=== PATIENT | female | born 1970 | race Caucasian/White ===

== ENCOUNTER 2021-03-03 11:12 | Emergency (ER) | payer BC, SELFPAY ==
--- NOTE | ~2021-03-03 | CT_ITS ---
EXAMINATION: CT HEAD WITHOUT CONTRAST CLINICAL INFORMATION: Headaches COMPARISON: None TECHNIQUE: Contiguous axial imaging was performed from the skull base to vertex without intravenous administration of contrast. Additional 2-D coronal and sagittal reformatted images are generated on the CT workstation and uploaded to PACS. This CT examination was performed using dose optimization techniques as appropriate, variously including the following: *Automated exposure control *Adjustment of mA and/or kV according to patient size (this includes techniques or standardized protocols for targeted exams where dose is matched to indication/reason for exam; i.e. extremities or head) *Use of iterative reconstruction technique DLP: 648 mGy-cm FINDINGS: There is no intracranial hemorrhage, hematoma, or extra-axial fluid collection. The ventricles are normal in size. There is no hydrocephalus, edema, or mass effect. The howard-white matter differentiation appears symmetric. There is no visible acute territorial infarct or mass lesion. The calvarium appears intact. There is no pneumocephalus or orbital emphysema. The visualized sinuses and middle ears and mastoid air cells show no significant mucosal thickening. There are no air-fluid levels. CT/CT head/brain wo con IMPRESSION: No acute intracranial abnormality.
[2021-03-03 11:17] VITALS: BP 118/63; PULSE 82; RESP 16; TEMP 36.7; O2SAT 99; BMI 30.9
[2021-03-03] MEDS: 0.9 % Sodium Chloride 1,000 ML 999 ML IVCONT (12:42)
[2021-03-03] MEDS: Prochlorperazine Edisylate 10 MG/2 ML VIAL IVPUSH (12:49)
[2021-03-03] MEDS: Ketorolac Tromethamine 30 MG/ML VIAL IVPUSH (12:49)
[2021-03-03] MEDS: diphenhydrAMINE HCL 50 MG/ML VIAL 25 MG IVPUSH (12:49)
[2021-03-03 13:22] VITALS: RESP 18
[2021-03-03 13:32] VITALS: BP 99/54; PULSE 57; RESP 16; TEMP 36.7; O2SAT 97
--- NOTE | 2021-03-03 13:45 | PC.NURSE ---
PT SLEEPING, VSS, NAD.
--- NOTE | 2021-03-03 15:43 | ED_ITS ---
HPI - Headache General Chief Complaint: Headache Stated Complaint: headache Time Seen by Provider: 03/03/21 11:53 History of Present Illness HPI Narrative: Patient complains of left-sided headache associated with some pain and photophobia in the left eye, headache is gradual in onset, it is not similar to prior headaches, there is no vision loss or vision change, no fever no fainting, she did have some vomiting this morning and feels nauseous now, no dizziness no fever no chills no rash Related Data Previous Rx's Medication Instructions Recorded ibuprofen 600 mg PO Q6H PRN #20 tab 03/03/21 lorazepam [Ativan] 1 mg PO TID PRN #10 tab 03/03/21 ondansetron HCl [Zofran] 4 mg PO Q6H PRN #7 tab 03/03/21 Allergies Allergy/AdvReac Type Severity Reaction Status Date / Time No Known Allergies Allergy Verified 03/03/21 11:33 Review of Systems Review of Systems: Positive for left-sided headache, left eye pain, photophobia, and nausea Negatives are no fever no chills no dizziness no weakness no fainting no feeling faint no neck pain no stiff neck no numbness weakness or tingling no vision los s no vision change, no chest pain no abdominal pain, no diarrhea, no numbness weakness or tingling Yes all other systems are reviewed and are negative PMFSH Past Medical History Source: nursing notes reviewed Social History Social History Advance Directives: No Advance Directives Information Provided: Yes Physical Exam Vital Signs: Vital Signs: Last Vital Signs Temp 98.1 F 03/03/21 13:32 Pulse 57 03/03/21 13:32 Resp 16 03/03/21 13:32 BP 99/54 L 03/03/21 13:32 Pulse Ox 97 03/03/21 13:32 Body Mass Index 30.9 General appearance is no acute distress, calm and cooperative, a and O x3 Head is normocephalic atraumatic The ears are clear with normal tympanic membranes and normal canals The eye exam, pupils equal round reactive to light, extraocular motions are intact, there was some mild photophobia when the light was signed in the eye on the left side The pharynx is clear and moist Neck is supple Chest is clear to auscultation bilaterally Heart no murmur Abdomen soft nontender The extremities full range of motion x4 Neuro cranial nerves 2-12 intact as tested, gait and balance are normal, verbal interaction, speech comprehension and expression are all normal, there is no facial asymmetry, motor is 5 over 5 times for, cerebellar exam is normal Course Course Course Narrative: CT of the head was normal, no evidence of bleed or mass Patient was treated for migraine with good results, pain and nausea were relieved and patient was discharged comfortable and very improved Discharge Plan Discharge Clinical Impression: Headache Patient Disposition: Home, Self-Care Additional Instructions: We treated you for probable migraine headache with good relief For home if needed use ibuprofen and Tylenol for pain You can use Zofran if needed for nausea I wrote for some Ativan to use as needed for stress Discuss with primary care doctor if anti anxiety medication on a daily basis might be beneficial to U Return to the ER any time for any worse condition or concerns Prescriptions: New lorazepam [Ativan] 1 mg tablet 1 mg PO TID PRN (Reason: anxiety) Qty: 10 RF: 0 ibuprofen 600 mg tablet 600 mg PO Q6H PRN (Reason: pain) Qty: 20 RF: 0 ondansetron HCl [Zofran] 4 mg tablet 4 mg PO Q6H PRN (Reason: nausea and vomiting) Qty: 7 RF: 0 Interventions: ED Discharge Assessment Last Done: 03/03/21 15:54 Discharge Date/Time: 03/03/21 15:55
== END 2021-03-03 15:55 | disposition home or self-care (01) ==
PROVIDERS: Emergency Provider Emergency Medicine; PCP Family Medicine
DX: R51.9 Headache, unspecified (principal); F17.200 Nicotine dependence, unspecified, uncomplicated; F12.90 Cannabis use, unspecified, uncomplicated
CPT/HCPCS: 70450; 96361; 96374; 96375; 99284; J1200; J1885

== ENCOUNTER 2021-03-08 17:30 | Emergency (ER) | payer BC, SELFPAY ==
[2021-03-08 17:39] VITALS: BP 110/79; PULSE 80
[2021-03-08 17:40] VITALS: BP 120/79; PULSE 78; RESP 16; TEMP 36.6; O2SAT 98; BMI 35.3
[2021-03-08 18:46] LABS: Basophils Percent Auto 0.4 % (0-2); Eosinophils Absolute Auto 0.2 X10*3/uL (0.0-0.4); Eosinophils Percent Auto 1.8 % (0-4); Hematocrit 40.6 % (37-47); Hemoglobin 13.2 g/dl (12.0-16.0); Imm Gran Abs Auto 0.03 X10*3/uL (0.00-0.03); Imm Gran Pct Auto 0.3 % (0.0-0.4); Lymphocytes Absolute Auto 3.8 X10*3/uL (1.2-4.9); Lymphocytes Percent Auto 40.8 % (20-40); MANUAL DIFF FLAG SCAN; Mean Corpuscular HGB Conc 32.5 g/dl (31.0-35.0); Mean Corpuscular Hemoglobin 29.4 pg (27.0-33.0); Mean Corpuscular Volume 90.4 fL (80-98); Mean Platelet Volume 9.9 fL (9.4-12.3); Monocytes Absolute Auto 0.8 X10*3/uL (0.1-1.2); Monocytes Percent Auto 8.4 % (2-11); Neutrophils Absolute Auto 4.5 X10*3/uL (2.0-8.3); Neutrophils Percent Auto 48.3 % (45-73); Platelet Count 227 X10*3/uL (160-400); Red Blood Count 4.49 X10*6/uL (4.20-5.50); Red Cell Distribution Width 12.4 % (11.0-16.0); SCAN SMEAR FLAG 1; White Blood Count 9.2 X10*3/uL (4.8-10.8)
[2021-03-08 19:10] LABS: SLIDE REVIEW VERIFIED
[2021-03-08 19:19] LABS: Alanine Aminotransferase 14 U/L (0-31); Albumin Level 4.1 g/dL (3.5-5.0); Alkaline Phosphatase 86 U/L (39-117); Anion Gap 11 (12-20); Aspartate Amino Transferase 13 U/L (5-31); Bilirubin Total 0.3 mg/dL (0.0-1.0); Blood Urea Nitrogen 18 mg/dL (9-16); Calcium 8.9 mg/dL (8.4-10.2); Carbon Dioxide 27 mmol/L (22-29); Chloride 105 mmol/L (96-108); Creatinine Clr Calc Pharmacy 72.1; Estimated Glomerular Filt Rate > 60; Glucose Random 95 mg/dL (60-115); Potassium 4.2 mmol/L (3.3-5.1); Sodium 139 mmol/L (135-145)
--- NOTE | 2021-03-08 20:12 | ED_ITS ---
HPI - Headache General Chief Complaint: Headache Stated Complaint: migraine Time Seen by Provider: 03/08/21 17:34 Source: patient and EMS Mode of arrival: EMS Limitations: no limitations History of Present Illness HPI Narrative: 50-year-old female with past medical history of migraines presents with intractable migraine that started over 2 weeks ago. She was seen here on the with a negative CT scan, but states that the medications that were prescribed are not working. She states to have photophobia, nausea, headache, and left eye pain. MD elicited complaint: migraine Onset (ago): week(s) (1) Onset description: gradually Location: diffuse Severity: severe Pain scale (0-10): 10 Quality & Timing: aching, throbbing, constant, pressure, progressively worsening and similar to previous headaches Exacerbating factors: exertion, light and noise Relieving factors: nothing Context: occurred at rest Associated symptoms: photophobia and sensitivity to sound Treatments prior to arrival: acetaminophen, ibuprofen, prescription analgesic, antiemetic and migraine medication Related Data Previous Rx's Medication Instructions Recorded ibuprofen 600 mg PO Q6H PRN #20 tab 03/03/21 lorazepam [Ativan] 1 mg PO TID PRN #10 tab 03/03/21 ondansetron HCl [Zofran] 4 mg PO Q6H PRN #7 tab 03/03/21 xjlcwuvqyd-rhbkclhivyprg-iwjk 1 cap PO Q4-6H PRN #14 cap 03/08/21 [Fioricet] Allergies Allergy/AdvReac Type Severity Reaction Status Date / Time No Known Allergies Allergy Verified 03/03/21 11:33 Review of Systems Review of Systems: Constitutional: Positive migraine, No Weight loss, No Fever, No Chills, No Night Sweats, No Fatigue, No Malaise ENT/Mouth: No Hearing loss, No Ear Pain, No Nasal Congestion, No Sinus Pain, No Hoarseness, No sore throat, No Rhinorrhea, No Swallowing Difficulty Eyes: Positive left Eye Pain, No Swelling, No Redness, No Foreign Body, No Discharge, No Vision Changes Cardiovascular: No Chest Pain, No SOB, No Dyspnea on Exertion, No Orthopnea, No Edema, No Palpitations Respiratory: No Cough, No Sputum, No Wheezing, No Smoke Exposure, No Dyspnea Gastrointestinal: No Nausea, No Vomiting, No Diarrhea, No Constipation, No abdominal Pain, No Hematochezia, No Melena Genitourinary: no irregular bleeding, No Dysuria, No Urinary Frequency, No Hematuria, No Urinary Incontinence, No Urgency, No Flank Pain, No Urinary Flow Changes, No Hesitancy Musculoskeletal: No joint pain, No Myalgias, No Joint Swelling Skin: No Skin Lesions, No rash Neuro: No Weakness, No Numbness, No Paresthesias, No Loss of Consciousness, No Dizziness, No Headache Psych: No Anxiety/Panic, No Depression, No SI/HI/AH/VH, No Social Issues Heme/Lymph: No Bruising, No Bleeding,No Lymphadenopathy Endocrine: No Polyuria, No Polydipsia, No Temperature Intolerance Yes all other systems are reviewed and are negative [facility] Past Medical History Attestation statement: The following information was validated with the patient. Source: old records reviewed Medical History Migraines Surgical History H/O rotator cuff surgery H/O tubal ligation History of ankle surgery Social History Social History Alcohol intake: current Alcohol intake frequency: a few times a month Smoking Status: Current every day smoker Smoked in Last 30 Days: Yes Use of substances other than those prescribed or required for medical reasons: No Substance Use Type: Marijuana Advance Directives: No Advance Directives Information Provided: No Physical Exam Vital Signs: Vital Signs: Last Vital Signs Temp 98.1 F 03/08/21 21:51 Pulse 64 03/08/21 21:51 Resp 16 03/08/21 22:04 BP 106/56 L 03/08/21 21:51 Pulse Ox 98 03/08/21 21:51 Body Mass Index 35.3 Appearance: Alert. Oriented X3. Moderate distress. Head: Normal external exam. Normocephalic. Atraumatic. No Mallory signs noted. No raccoon eyes noted Eyes: PERRLA. EOMI. Conjunctiva erythematous to the left eye. Eyelids normal. ENT: TM's Normal. Pharynx normal. Uvula midline. Moist mucous membranes. No trismus noted. No drooling noted. No muffled voice noted. Neck: Normal inspection. Neck supple. No adenopathy. Thyroid Normal. No meningeal signs. No neck mass noted. CVS: Normal heart rate and rhythm. Heart sound normal. No murmurs noted. Pulses equal to all extremities. Respiratory: No respiratory distress. Painless inspiration. Breath sounds normal. No wheezes/rales/rhonchi noted. Chest nontender. No accessory muscle usage noted or decreased air movement noted. Abdomen: Soft and nontender. Bowel sounds normal in all 4 quadrants. No distention noted. No organomegaly noted. No visible injury noted. Back: No CVA tenderness. Full range of motion noted. Skin: Skin warm and dry. Normal skin color. Normal skin turgor. No rashes/lesions/lacerations noted. Extremities: No lower extremity edema. Extremities exhibit normal range of motion. Extremities nontender. Neuro: cranial nerves 2-12 intact, no focal neural deficits, strength 5/5 to all extremities, No motor deficit. No sensory deficit. Patellar Reflexes normal. NIH Stroke Scale Internal: Initial- Upon Arrival Level of Consciousness: Alert Level of Consciousness Questions: Answers both questions correctly Level of Consciousness Commands: Performs both tasks correctly Best Gaze: Normal Visual: No visual loss Facial Palsy: Normal Motor Arm (Right): No drift Motor Arm (Left): No drift Motor Leg (Right): No drift Motor Leg (Left): No drift Limb Ataxia: Absent Sensory: Normal Best Language: No aphasia Dysarthia: Normal Extinction and Inattention: No abnormality Score: 0 Course Course Course Narrative: 50-year-old female with past medical history migraines, presents with intractable migraine. Was evaluated on 03/03/2021 at this facility with negative CT scan. States that she was taking the medications that were prescribed to her however they did not work very well. She did receive Toradol via EMS. I did see her immediately upon presentation to the emergency department via EMS and she was then brought to the emergency department waiting room. NIH stroke scale 0, completed at the time of her initial presentation via EMS. Will give 1 L of fluid, Reglan, Benadryl, magnesium, and dexamethasone. Approximately 1 hour after receiving medications, patient states that she feels much better, her eye is still red she does have an appointment with Ophthalmology on Tuesday. She has had this eye pain for 2 weeks. Patient referred to Neurology, patient verbalized understanding of and agrees to plan of care discharge home. MDM - Headache Differential Diagnosis Differential diagnosis: Likely migraine, tension headache and headache Medical Records Attestation: I reviewed the patient's medical records. Lab Data Attestation: I reviewed the patient's lab results. Result diagrams: 03/08/21 18:39 03/08/21 18:39 Labs: Lab Results 03/08/21 03/08/21 Range/Units 18:39 18:39 WBC 9.2 (4.8-10.8) X10*3/uL RBC 4.49 (4.20-5.50) X10*6/uL Hgb 13.2 (12.0-16.0) g/dl Hct 40.6 (37-47) % MCV 90.4 (80-98) fL MCH 29.4 (27.0-33.0) pg MCHC 32.5 (31.0-35.0) g/dl RDW 12.4 (11.0-16.0) % Plt Count 227 (160-400) X10*3/uL MPV 9.9 (9.4-12.3) fL Immature Gran % (Auto) 0.3 (0.0-0.4) % Neut % (Auto) 48.3 (45-73) % Lymph % (Auto) 40.8 H (20-40) % [place] % (Auto) 8.4 (2-11) % Eos % (Auto) 1.8 (0-4) % Baso % (Auto) 0.4 (0-2) % Lymph # (Auto) 3.8 (1.2-4.9) X10*3/uL [place] # (Auto) 0.8 (0.1-1.2) X10*3/uL Eos # (Auto) 0.2 (0.0-0.4) X10*3/uL Baso # (Auto) 0.0 (0.0-0.2) X10*3/uL Abs Immat Gran (auto) 0.03 (0.00-0.03) X10*3/uL Absolute Neuts (auto) 4.5 (2.0-8.3) X10*3/uL Absolute Nucleated RBC 0.000 (0.0-0.012) X10*3/uL Nucleated RBC % (auto) 0.0 (0.0-0.2) /100WBC Smear Tech's Comments VERIFIED Sodium 139 (135-145) mmol/L Potassium 4.2 (3.3-5.1) mmol/L Chloride 105 (96-108) mmol/L Carbon Dioxide 27 (22-29) mmol/L Anion Gap 11 L (12-20) BUN 18 H (9-16) mg/dL Creatinine 0.84 (0.5-1.4) mg/dL Estim Creat Clear Calc 72.1 Estimated GFR > 60 Random Glucose 95 (60-115) mg/dL Calcium 8.9 (8.4-10.2) mg/dL Total Bilirubin 0.3 (0.0-1.0) mg/dL AST 13 (5-31) U/L ALT 14 (0-31) U/L Alkaline Phosphatase 86 (39-117) U/L Total Protein 7.0 (6.5-8.0) g/dL Albumin 4.1 (3.5-5.0) g/dL Discharge Plan Discharge Clinical Impression: Migraine Qualifiers: Migraine type: unspecified Status migrainosus presence: with status migrainosus Intractability: intractable Qualified Code(s): G43.911 - Migraine, unspecified, intractable, with status migrainosus Patient Disposition: Home, Self-Care Instructions: Migraine Headache (ED) Additional Instructions: You were evaluated for migraine headache. Please take Fioricet as directed. Please consider following up with Neurology for further evaluation. Please keep your ophthalmology appointment on Tuesday. Thank you for choosing this emergency department for evaluation. Please follow-up with primary care physician as needed. Return to the emergency department for any new, concerning, or worsening symptoms. Prescriptions: New wvobdedaid-jqkzhwrpljtpn-bfuw [Fioricet] 50-300-40 mg capsule 1 cap PO Q4-6H PRN (Reason: pain) Qty: 14 RF: 0 No Action lorazepam [Ativan] 1 mg tablet 1 mg PO TID PRN (Reason: anxiety) Qty: 10 RF: 0 ibuprofen 600 mg tablet 600 mg PO Q6H PRN (Reason: pain) Qty: 20 RF: 0 ondansetron HCl [Zofran] 4 mg tablet 4 mg PO Q6H PRN (Reason: nausea and vomiting) Qty: 7 RF: 0 Referrals: Jayy Spaulding MD [Physician] - 2 days (migraines)
[2021-03-08 20:15] VITALS: BP 143/80; PULSE 81; RESP 16; TEMP 36.9; O2SAT 98
[2021-03-08] MEDS: Butalb/Acetamin/Caff 50/325/40 TABLET 1 TAB PO (20:47)
[2021-03-08] MEDS: diphenhydrAMINE HCL 50 MG/ML VIAL 25 MG IVPUSH (20:49)
[2021-03-08] MEDS: dexAMETHasone sod phosphate 4 MG/ML VIAL 6 MG IVPUSH (20:52)
[2021-03-08] MEDS: Metoclopramide HCl 10 MG/2 ML VIAL IVPUSH (20:58)
[2021-03-08] MEDS: Magnesium Sulfate/H2O 2 GM/50 ML PIGGYBACK IV (21:07)
[2021-03-08] MEDS: 0.9 % Sodium Chloride 1,000 ML 999 ML IVCONT (21:07)
[2021-03-08 21:51] VITALS: BP 106/56; PULSE 64; RESP 16; TEMP 36.7; O2SAT 98
[2021-03-08 22:04] VITALS: RESP 16
== END 2021-03-09 00:09 | disposition home or self-care (01) ==
PROVIDERS: Emergency Provider Emergency Medicine
DX: G43.911 Migraine, unspecified, intractable, with status migrainosus (principal); F17.200 Nicotine dependence, unspecified, uncomplicated; F12.90 Cannabis use, unspecified, uncomplicated
CPT/HCPCS: 36415; 80053; 85025; 96361; 96374; 96375; 99284; J1100; J1200; J2765; J3475

== ENCOUNTER 2021-06-18 07:36 | Emergency (ER) | payer BC, SELFPAY ==
[2021-06-18 07:56] VITALS: BP 121/65; PULSE 95; RESP 16; TEMP 37.6; O2SAT 97; BMI 33.6
[2021-06-18 08:00] VITALS: BP 110/70; PULSE 90; RESP 20; O2SAT 95
[2021-06-18] MEDS: Ketorolac Tromethamine 15 MG/ML VIAL 30 MG IVPUSH (08:27)
[2021-06-18] MEDS: 0.9 % Sodium Chloride 1,000 ML 999 ML IVCONT (08:27)
[2021-06-18] MEDS: Lidocaine 4 % Patch ADH..PATCH 1 PATCH TRANSDERMA (08:28)
[2021-06-18 08:29] LABS: Hematocrit 38.8 % (37-47); Hemoglobin 12.8 g/dl (12.0-16.0); Mean Corpuscular Hemoglobin 29.9 pg (27.0-33.0); Mean Corpuscular Volume 90.7 fL (80-98); Platelet Count 253 X10*3/uL (160-400); Red Blood Count 4.28 X10*6/uL (4.20-5.50); Red Cell Distribution Width 13.2 % (11.0-16.0); White Blood Count 14.2 X10*3/uL (4.8-10.8)
[2021-06-18 08:30] LABS: Glucose Urine UA NEG (NEG); Leukocyte Esterase Urine NEG (NEG); Nitrite Urine NEG (NEG); Specific Gravity - Urine >= 1.030 (1.005-1.025); Urine Blood NEG (NEG); Urine Ketones NEG (NEG); Urine Protein NEG (NEG-TRACE)
[2021-06-18 08:31] LABS: Appearance Urine HAZY; Color Urine YELLOW
--- NOTE | 2021-06-18 08:38 | ED_ITS ---
HPI - Female Genitourinary General Chief complaint: Urogenital-Female Stated complaint: flank pain Time Seen by Provider: 06/18/21 08:03 Source: patient Mode of arrival: ambulatory Limitations: no limitations History of Present Illness HPI Narrative: 50 y/o female with history of migraine headaches who presented to the ER with left sided flank and back pain that started 4 days ago. She denies injury or trauma but admits the pain started after she slept in her recliner. She states the pain is worse with movement, palpation and coughing/sneezing. She initially thought it was muscular pain but it has not gone away, in fact it has gotten worse. She took Tylenol last night with no improvement. She denies urinary symptoms, fever, chills, N/V/D, or abdominal pain. MD elicited complaint: flank pain Onset (ago): day(s) (4) Severity: moderate Female Urogenital Radiation: Non-Radiating Severity scale (1-10): 6 Quality of pain: sharp and aching Consistency: constant Vaginal discharge: none Vaginal bleeding: none Urinary symptoms: Flank Pain Exacerbating factors: movement and palpation Relieving factors: other (rest, staying still) Associated symptoms: denies other symptoms Treatment prior to arrival: none Sexual activity: No Patient : No Related Data Previous Rx's Medication Instructions Recorded ibuprofen 600 mg tablet 600 mg PO Q6H PRN #20 tab 03/03/21 lorazepam 1 mg tablet (Ativan) 1 mg PO TID PRN #10 tab 03/03/21 ondansetron HCl 4 mg tablet 4 mg PO Q6H PRN #7 tab 03/03/21 (Zofran) gonrglcjnc-wffjdwuzaeirx-yvnppetp 1 cap PO Q4-6H PRN #14 cap 03/08/21 50 mg-300 mg-40 mg capsule (Fioricet) lidocaine 4 % topical patch 1 patch TOPICAL BID PRN #10 ea 06/18/21 (Salonpas (lidocaine)) naproxen sodium 220 mg capsule 220 mg PO Q8H PRN #14 cap 06/18/21 tizanidine 2 mg capsule (Zanaflex) 2 mg PO BID PRN #6 cap 06/18/21 Allergies Allergy/AdvReac Type Severity Reaction Status Date / Time No Known Allergies Allergy Verified 03/03/21 11:33 Review of Systems Constitutional: Constitutional: Denies chills, Denies fever(s) and Denies headache(s) Eyes: Eyes: Reports no additional eye complaints ENT: Denies headache(s) and Denies sore throat Cardiovascular: Cardiovascular: Denies chest pain and Denies dyspnea Respiratory: Respiratory: Denies cough and Denies dyspnea Gastrointestinal: Gastrointestinal: Denies abdominal pain, Denies belching, Denies melena, Denies hematochezia, Denies change in bowel habits, Denies coffee ground emesis, Denies constipation, Denies diarrhea, Denies nausea and Denies vomiting Genitourinary: Genitourinary: Denies abnormal vaginal bleeding, Denies hematur ia, Denies urinary incontinence, Denies urinary hesitancy, Denies urinary urgency and Denies vaginal discharge Musculoskeletal: Musculoskeletal: Reports back pain and Denies myalgias Integumentary/Breasts: Skin/Breast: Denies rash Neurologic: Denies headache(s) Psychiatric: Psychiatric: Reports anxiety Hematologic/Lymphatic: Hematologic/Lymphatic: Denies easy bleeding and Denies easy bruising PMFSH Past Medical History Medical History Migraines Surgical History H/O rotator cuff surgery H/O tubal ligation History of ankle surgery Social History Social History Alcohol intake: current Alcohol intake frequency: holidays/special occasions only Patient Tobacco Use Status: Current someday Tobacco user Use of substances other than those prescribed or required for medical reasons: No Substance Use Type: Marijuana Advance Directives: No Advance Directives Information Provided: Yes Patient : No Physical Exam Vital Signs: Vital Signs: Last Vital Signs Temp 99.7 F 06/18/21 07:56 Pulse 76 06/18/21 09:18 Resp 18 06/18/21 09:18 BP 102/58 L 06/18/21 09:18 Pulse Ox 95 06/18/21 09:18 Body Mass Index 33.6 Appearance: Alert. Oriented X3. No acute distress. Eyes: Pupils equal, round and reactive to light. ENT: Pharynx normal. Neck: Normal inspection. Neck supple. CVS: Normal heart rate and rhythm. Pulses normal. Respiratory: No respiratory distress. Breath sounds normal. Abdomen: Soft and nontender. +BS x4. Left flank/ mid thoracic back area with soft tissue tenderness, +CVA tenderness on the left. Skin: Skin warm and dry. Normal skin color. Normal skin turgor. No rashes. Extremities: No lower extremity edema. Neuro: Oriented X 3. No motor deficit. No sensory deficit. Course Course Course Narrative: 50 y/o female presenting with left sided back/flank pain for the last 4 days after she slept in her recliner. She has no urinary symptoms. Her VS are stable and she appears well. Pain with movement only. Suspect MSK source of pain. Will check basic labs and UA. Toradol ordered. Will reassess. Reevaluation(s) Reevaluation #1: UA negative. WBC 14K, unclear etiology. No signs of symptoms of infection at this time. She feels significantly improved with NSAID and lidoderm. Her pain is most likely muscular in nature. Will treat for muscular pain/spasm and have her follow up with her PCP. She is stable for d/c home. Patient agrees with plan. MDM - Female Genitourinary Lab Data Result diagrams: 06/18/21 08:20 08 08:20 Labs: Lab Results 06/18/21 06/18/21 06/18/21 Range/Units 08:20 08:20 08:20 WBC 14.2 H (4.8-10.8) X10*3/uL RBC 4.28 (4.20-5.50) X10*6/uL Hgb 12.8 (12.0-16.0) g/dl Hct 38.8 (37-47) % MCV 90.7 (80-98) fL MCH 29.9 (27.0-33.0) pg MCHC 33.0 (31.0-35.0) g/dl RDW 13.2 (11.0-16.0) % Plt Count 253 (160-400) X10*3/uL MPV 10.0 (9.4-12.3) fL Immature Gran % (Auto) Cancelled Neut % (Auto) Cancelled Lymph % (Auto) Cancelled [place] % (Auto) Cancelled Eos % (Auto) Cancelled Baso % (Auto) Cancelled Lymph # (Auto) Cancelled [place] # (Auto) Cancelled Eos # (Auto) Cancelled Baso # (Auto) Cancelled Abs Immat Gran (auto) Cancelled Absolute Neuts (auto) Cancelled Absolute Nucleated RBC 0.000 (0.0-0.012) X10*3/uL Nucleated RBC % (auto) 0.0 (0.0-0.2) /100WBC Neutrophils % (Manual) 47 (45-73) % Band Neutrophils % 3 (3-5) % Lymphocytes % (Manual) 35 (20-40) % Atypical Lymphs % (Man) 4 (0-6) % Monocytes % (Manual) 8 (2-11) % Eosinophils % (Manual) 2 (0-4) % Basophils % (Manual) 1 (0-1) % Abs Neuts (Manual) 7.1 (2.2-7.9) X10*3/uL Lymphocytes # (Manual) 5.0 H (0.6-4.8) X10*3/uL Atyp Lymphs # (Manual) 0.6 x10*3/uL Monocytes # (Manual) 1.1 (0.0-1.2) X10*3/uL Eosinophils # (Manual) 0.3 (0.0-0.8) X10*3/UL Basophils # (Manual) 0.1 (0.0-0.3) X10*3/uL [place] Cells PRESENT Platelet Estimate NORMAL (NORMAL) Plt Morphology Comment NORMAL RBC Morphology NORMAL Sodium 142 (135-145) mmol/L Potassium 4.3 (3.3-5.1) mmol/L Chloride 108 (96-108) mmol/L Carbon Dioxide 25 (22-29) mmol/L Anion Gap 13 (12-20) BUN 13 (9-16) mg/dL Creatinine 0.70 (0.5-1.4) mg/dL Estim Creat Clear Calc 98.9 Estimated GFR > 60 Random Glucose 95 (60-115) mg/dL Calcium 9.2 (8.4-10.2) mg/dL Magnesium 2.2 (1.6-2.6) mg/dL Total Bilirubin < 0.2 (0.0-1.0) mg/dL Direct Bilirubin < 0.2 (0.0-0.5) mg/dL AST 10 (5-31) U/L ALT 15 (0-31) U/L Alkaline Phosphatase 81 (39-117) U/L Total Protein 7.2 (6.5-8.0) g/dL Albumin 4.1 (3.5-5.0) g/dL Urine Color YELLOW Urine Appearance HAZY Urine pH 6.0 (5.0-8.0) Ur Specific [place] >= 1.030 H (1.005-1.025) Urine Protein NEG (NEG-TRACE) MG/DL Urine Glucose (UA) NEG (NEG) MG/DL Urine Ketones NEG (NEG) MG/DL Urine Blood NEG (NEG) Urine Nitrite NEG (NEG) Ur Leukocyte Esterase NEG (NEG) Discharge Plan Discharge Clinical Impression: Acute left-sided thoracic back pain Patient Disposition: Home, Self-Care Instructions: Back Pain (ED) Additional Instructions: Your pain is most likely muscular. No bending, lifting or twisting. Use ice several times per day for 20 minutes at a time for the next 48 hours and then change to heat. Take medications as prescribed to help with pain and discomfort. Follow up with your Primary Care Doctor this week. If your pain worsens, if you develop new numbness, tingling, weakness, loss of function or incontinence call 911 or come back to the ER right away for evaluation. Prescriptions: New lidocaine [Salonpas (lidocaine)] 4 % adhesive patch,medicated 1 patch topical BID PRN (Reason: pain) Qty: 10 RF: 0 tizanidine [Zanaflex] 2 mg capsule 2 mg PO BID PRN (Reason: muscle spasticity) Qty: 6 RF: 0 naproxen sodium 220 mg capsule 220 mg PO Q8H PRN (Reason: pain) Qty: 14 RF: 0 No Action lorazepam [Ativan] 1 mg tablet 1 mg PO TID PRN (Reason: anxiety) Qty: 10 RF: 0 ibuprofen 600 mg tablet 600 mg PO Q6H PRN (Reason: pain) Qty: 20 RF: 0 ondansetron HCl [Zofran] 4 mg tablet 4 mg PO Q6H PRN (Reason: nausea and vomiting) Qty: 7 RF: 0 xlpujjwcvu-lsmfjcwhovqka-xvvj [Fioricet] 50-300-40 mg capsule 1 cap PO Q4-6H PRN (Reason: pain) Qty: 14 RF: 0
[2021-06-18 08:56] LABS: Alanine Aminotransferase 15 U/L (0-31); Albumin Level 4.1 g/dL (3.5-5.0); Alkaline Phosphatase 81 U/L (39-117); Anion Gap 13 (12-20); Aspartate Amino Transferase 10 U/L (5-31); Bilirubin Direct < 0.2 mg/dL (0.0-0.5); Bilirubin Total < 0.2 mg/dL (0.0-1.0); Blood Urea Nitrogen 13 mg/dL (9-16); Calcium 9.2 mg/dL (8.4-10.2); Carbon Dioxide 25 mmol/L (22-29); Chloride 108 mmol/L (96-108); Creatinine Clr Calc Pharmacy 98.9; Estimated Glomerular Filt Rate > 60; Glucose Random 95 mg/dL (60-115); Magnesium 2.2 mg/dL (1.6-2.6); Potassium 4.3 mmol/L (3.3-5.1); Sodium 142 mmol/L (135-145); Total Protein 7.2 g/dL (6.5-8.0)
[2021-06-18 08:58] LABS: Atypical Lymph Absolute Manual 0.6 x10*3/uL; Atypical Lymphs Percent Manual 4 % (0-6); Band Neutrophils Percent 3 % (3-5); Basophils Abs Manual 0.1 X10*3/uL (0.0-0.3); Basophils Percent Manual 1 % (0-1); Eosinophils Absolute Manual 0.3 X10*3/UL (0.0-0.8); Eosinophils Percent Manual 2 % (0-4); Lymphocytes Percent Manual 35 % (20-40); Monocytes Absolute Manual 1.1 X10*3/uL (0.0-1.2); Monocytes Percent Manual 8 % (2-11); Neutrophils Absolute Manual 7.1 X10*3/uL (2.2-7.9); Neutrophils Percent Manual 47 % (45-73)
[2021-06-18 09:00] LABS: Platelet Estimate NORMAL (NORMAL); Platelet Morphology Comment NORMAL; RBC Morphology NORMAL; Smudge Cells PRESENT
[2021-06-18 09:18] VITALS: BP 102/58; PULSE 76; RESP 18; O2SAT 95
== END 2021-06-18 10:48 | disposition home or self-care (01) ==
PROVIDERS: Physician Assistant; Emergency Provider Emergency Medicine
DX: M54.6 Pain in thoracic spine (principal); F17.210 Nicotine dependence, cigarettes, uncomplicated; F12.90 Cannabis use, unspecified, uncomplicated
CPT/HCPCS: 36415; 80048; 80076; 81003; 83735; 85007; 85027; 96361; 96374; 99284; J1885

== ENCOUNTER 2025-02-19 14:11 | Emergency (ER) | payer BC, SELFPAY ==
[2025-02-19 14:44] VITALS: BP 146/93; PULSE 115; RESP 16; TEMP 36.6; O2SAT 97; BMI 41.6
--- NOTE | 2025-02-19 14:54 | ED.GENADULT ---
HPI - General Adult General Chief complaint: General Medical Stated complaint: High blood sugar Time Seen by Provider: 02/19/25 15:16 Source: patient Mode of arrival: ambulatory Limitations: no limitations History of Present Illness ED Provider: DAVID HPI narrative: 54 yo female no known PMH but she hasn't been caring for herself. 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 She has not been to the doctors in 5 years. She c/o fatigue, thirst, polyuria x 3 weeks. Her mom has DM so she became concerned. No fevers, CP/SOB, n/v/d. She knows how to dose insulin and check blood sugars as she has to do it for her mom. complaint: concern for DM Onset (ago): week(s) (3) Severity: moderate Relieving factors: none Exacerbating factors: eating Associated symptoms: other (polydipsia, polyuria) Treatments prior to arrival: none Related Data Previous Rx's ?Medication ?Instructions ?Recorded ibuprofen 600 mg tablet 600 mg PO Q6H PRN pain #20 tabs 03/03/21 lorazepam 1 mg tablet (Ativan) 1 mg PO TID PRN anxiety #10 tabs 03/03/21 ondansetron HCl 4 mg tablet 4 mg PO Q6H PRN nausea and 03/03/21 (Zofran) vomiting #7 tabs lzqflylpbd-qcdpcqdidwxti-dingtbzd 1 cap PO Q4-6H PRN pain #14 caps 03/08/21 50 mg-300 mg-40 mg capsule (Fioricet) lidocaine 4 % topical patch 1 patch topical BID PRN pain #10 ea 06/18/21 (Salonpas (lidocaine)) naproxen sodium 220 mg capsule 220 mg PO Q8H PRN pain #14 caps 06/18/21 tizanidine 2 mg capsule (Zanaflex) 2 mg PO BID PRN muscle spasticity 06/18/21 #6 caps blood sugar diagnostic (FreeStyle #100 ea 02/19/25 Test strips) blood-glucose meter (FreeStyle #1 ea 02/19/25 Wharton kit) blood-glucose meter (Freestyle #1 ea 02/19/25 [employer] meter) insulin glargine 100 unit/mL 10 unit (0.1 mL) subcut QPM #10 mL 02/19/25 subcutaneous solution (Lantus U-100 Insulin) lancets 28 gauge (FreeStyle #100 ea 02/19/25 Lancets) metformin 500 mg tablet 500 mg PO BID #60 tabs 02/19/25 Allergies Allergy/AdvReac Type Severity Reaction Status Date / Time No Known Allergies Allergy Verified 02/19/25 14:44 Review of Systems Review of Systems: Constitutional : No Fever, No Chills, No Fatigue ENT/Mouth : No sore throat, No Rhinorrhea Eyes: No Eye Pain, No Swelling, No Redness Cardiovascular : No Chest Pain, No SOB, No Dyspnea on Exertion Respiratory : No Cough, No Sputum Gastrointestinal : No Nausea, No Vomiting, No Diarrhea, No abdominal Pain Genitourinary : No Dysuria, No Urinary Frequency, No Hematuria, Musculoskeletal : No joint pain, No Myalgias, No Joint Swelling Skin : No Skin Lesions, No rash Neuro : No Weakness, No Numbness, No Dizziness, no Headache Psych : No Anxiety/Panic, No Depression Heme/Lymph: No Bruising, No Bleeding,No Lymphadenopathy Endocrine : pos Polyuria, pos Polydipsia All other systems reviewed and are negative [facility] Past Medical History Attestation statement: The following information was validated with the patient. Source: old records reviewed Medical History Migraines Surgical History H/O tubal ligation H/O rotator cuff surgery History of ankle surgery Social History Social History Alcohol intake: current Alcohol intake frequency: holidays/special occasions only Patient Tobacco Use Status: Current someday Tobacco user Smoked in Last 30 Days: No Use of substances other than those prescribed or required for medical reasons: No Substance Use Type: Marijuana Advance Directives: No Advance Directives Information Provided: Yes Physical Exam ED Vital Signs: Vital Signs - 24 hr 02/19/25 14:44 02/19/25 17:13 02/19/25 17:14 Temperature 98 F 97.8 F 97.8 F Pulse Rate 115 H 105 H 105 H Respiratory Rate 16 18 18 Blood Pressure 146/93 H 126/86 126/86 Pulse Oximetry 97 97 97 Oxygen Delivery Method Room Air Room Air Room Air BMI result Body Mass Index 41.6 Appearance: Alert. Oriented X3. No acute distress. Eyes: Pupils equal, round and reactive to light. ENT: Pharynx mildy dry MM Neck: Normal inspection. Neck supple. CVS: Normal heart rate and rhythm. Pulses normal. Respiratory: No respiratory distress. Breath sounds normal. Abdomen: Soft and nontender. Skin: Skin warm and dry. Normal skin color. Normal skin turgor. Extremities: No lower extremity edema. No calf ttp Neuro: Oriented X 3. No motor deficit. No sensory deficit. CN2-12 intact Course Course Course Narrative: RME: 54-year-old female presents to ED for polydipsia polyuria with dizziness for the past 2 weeks. Patient states she checked her glucose to her mother's glucometer and her glucose was high. Presently glucometer over 476. Charge nurse made aware labs fluids ordered. Medications Administered Discontinued Medications Generic Name Dose Route Start Last Admin Trade Name Freq PRN Reason Stop Dose Admin Sodium Chloride 1,000 mls @ 999 mls/hr 02/19/25 14:51 02/19/25 17:43 Ns IV 02/19/25 15:51 Infused .Q1H1M STA Infusion Sodium Chloride 1,000 mls @ 999 mls/hr 02/19/25 14:53 02/19/25 17:43 Ns IV 02/19/25 15:53 Infused .Q1H1M STA Infusion Insulin Glargine 10 unit 02/19/25 17:15 02/19/25 17:54 Insulin Glargine,Hum.Rec.Anlog 100 Unit/Ml 10 Ml Vial SUBCUT 02/19/25 17:16 10 unit ONCE ONE Administration Insulin Human Regular 5 unit 02/19/25 15:44 02/19/25 16:18 Insulin Regular, Human 100 Unit/Ml 10 Ml Vial IVPUSH 02/19/25 15:45 5 unit ONCE ONE Administration Medical Decision Making Medical Decision Making MDM Narrative: 54 yo female who has not gone to the doctor in 5 years come in with c/o polyuria, polydipsia and concern for new onset DM - she has no infectious symptoms no CP/SOB. At this time will obtain labs, hydrate, start on IV insulin - start medications as well but likely lantus depending on her HgA1c. She is well educated as she cares for her mother and is able to do this. Will refer to PCP Differential Diagnosis Differential Diagnoses: The differential diagnosis associated with the presentation includes new onset DM, DKA Admission/Observation Consideration of admission/observation: Escalation of care including admission/observation considered BS improved reliable to care for her DM repeat BMP stable - can be DC home Lab Data [facility] Lab Attestation statement: I reviewed the patient's lab results. no gap mild drop in HCO3 doubt DKA 02/19/25 15:37 02/19/25 17:30 Labs: Lab Results 02/19/25 02/19/25 02/19/25 Range/Units 14:51 15:31 15:37 WBC 11.5 H (4.8-10.8) X10*3/uL RBC 4.79 (4.20-5.50) X10*6/uL Hgb 14.1 (12.0-16.0) g/dl Hct 40.8 (37.0-47.0) % MCV 85.2 (80.0-98.0) fL MCH 29.4 (27.0-33.0) pg MCHC 34.6 (31.0-35.0) g/dl RDW 12.3 (11.0-16.0) % Plt Count 242 (160-400) X10*3/uL MPV 11.6 (9.4-12.3) fL Immature Gran % (Auto) 0.3 (0.0-0.4) % Neut % (Auto) 51.9 (45-73) % Lymph % (Auto) 40.7 H (20-40) % [place] % (Auto) 5.6 (2-11) % Eos % (Auto) 0.9 (0-4) % Baso % (Auto) 0.6 (0-2) % Lymph # (Auto) 4.7 (1.2-4.9) X10*3/uL [place] # (Auto) 0.6 (0.1-1.2) X10*3/uL Eos # (Auto) 0.1 (0.0-0.4) X10*3/uL Baso # (Auto) 0.1 (0.0-0.2) X10*3/uL Abs Immat Gran (auto) 0.03 (0.00-0.03) X10*3/uL Absolute Neuts (auto) 6.0 (2.0-8.3) x10*3/uL Absolute Nucleated RBC 0.000 (0.0-0.012) X10*3/uL Nucleated RBC % (auto) 0.0 (0.0-0.2) /100WBC Smear Tech's Comments VERIFIED Sodium 132 L (135-145) mmol/L Potassium 4.4 (3.3-5.1) mmol/L Chloride 99 (96-108) mmol/L Carbon Dioxide 21 L (22-29) mmol/L Anion Gap 16 (12-20) BUN 14 (9-16) mg/dL Creatinine 0.93 (0.5-1.4) mg/dL Estim Creat Clear Calc 68.3 Estimated GFR > 60 POC Glucose 479 H* (60-115) mg/dL Random Glucose 465 H* (60-115) mg/dL Estimat Average Glucose 324 mg/dL Hemoglobin A1c % 12.9 H (<6.0) % Calcium 9.3 (8.4-10.2) mg/dL Total Bilirubin 0.3 (0.0-1.0) mg/dL AST 36 H (5-31) U/L ALT 28 (0-31) U/L Alkaline Phosphatase 152 H (39-117) U/L Total Protein 8.3 H (6.5-8.0) g/dL Albumin 4.0 (3.5-5.0) g/dL Beta-Hydroxybutyrate 1.21 H (0.02-0.27) mmol/L Urine Color Yellow Urine Appearance Clear Urine pH 5.5 (5.0-9.0) Ur Specific [place] >= 1.030 H (1.005-1.025) Urine Protein Negative (Neg-Trace) mg/dL Urine Glucose (UA) >=1000 H (Negative) mg/dL Urine Ketones 15 (Negative) mg/dL Urine Blood Moderate (2+) H (Negative) Urine Nitrite Negative (Negative) Ur Leukocyte Esterase Negative (Negative) Urine RBC >20 H (0-2) /HPF Urine WBC 0-5 (0-5) /HPF Ur Squamous Epith Cells 0-2 (0-2) /HPF Urine Bacteria None Seen (None Seen) Hyaline Casts 3-5 (0-2) /LPF 02/19/25 02/19/25 02/19/25 Range/Units 16:18 17:03 17:30 WBC (4.8-10.8) X10*3/uL RBC (4.20-5.50) X10*6/uL Hgb (12.0-16.0) g/dl Hct (37.0-47.0) % MCV (80.0-98.0) fL MCH (27.0-33.0) pg MCHC (31.0-35.0) g/dl RDW (11.0-16.0) % Plt Count (160-400) X10*3/uL MPV (9.4-12.3) fL Immature Gran % (Auto) (0.0-0.4) % Neut % (Auto) (45-73) % Lymph % (Auto) (20-40) % [place] % (Auto) (2-11) % Eos % (Auto) (0-4) % Baso % (Auto) (0-2) % Lymph # (Auto) (1.2-4.9) X10*3/uL [place] # (Auto) (0.1-1.2) X10*3/uL Eos # (Auto) (0.0-0.4) X10*3/uL Baso # (Auto) (0.0-0.2) X10*3/uL Abs Immat Gran (auto) (0.00-0.03) X10*3/uL Absolute Neuts (auto) (2.0-8.3) x10*3/uL Absolute Nucleated RBC (0.0-0.012) X10*3/uL Nucleated RBC % (auto) (0.0-0.2) /100WBC Smear Tech's Comments Sodium 139 (135-145) mmol/L Potassium 3.7 (3.3-5.1) mmol/L Chloride 109 H (96-108) mmol/L Carbon Dioxide 22 (22-29) mmol/L Anion Gap 12 (12-20) BUN 11 (9-16) mg/dL Creatinine 0.68 (0.5-1.4) mg/dL Estim Creat Clear Calc 93.3 Estimated GFR > 60 POC Glucose 379 H* 298 H (60-115) mg/dL Random Glucose 314 H (60-115) mg/dL Estimat Average Glucose mg/dL Hemoglobin A1c % (<6.0) % Calcium 8.4 D (8.4-10.2) mg/dL Total Bilirubin (0.0-1.0) mg/dL AST (5-31) U/L ALT (0-31) U/L Alkaline Phosphatase (39-117) U/L Total Protein (6.5-8.0) g/dL Albumin (3.5-5.0) g/dL Beta-Hydroxybutyrate (0.02-0.27) mmol/L Urine Color Urine Appearance Urine pH (5.0-9.0) Ur Specific [place] (1.005-1.025) Urine Protein (Neg-Trace) mg/dL Urine Glucose (UA) (Negative) mg/dL Urine Ketones (Negative) mg/dL Urine Blood (Negative) Urine Nitrite (Negative) Ur Leukocyte Esterase (Negative) Urine RBC (0-2) /HPF Urine WBC (0-5) /HPF Ur Squamous Epith Cells (0-2) /HPF Urine Bacteria (None Seen) Hyaline Casts (0-2) /LPF External Record Review External record reviewed: Outpatient record Prescription Management I considered prescription management with: Other Discharge Plan Discharge Clinical Impression: Diabetes mellitus, new onset Patient Disposition: Home, Self-Care Instructions: How to Give an Insulin Injection (ED), Diabetes and Nutrition (ED), How to Check your Blood Sugar (ED) Additional Instructions: check our blood sugar three times a day and before bed administer the lantus bedtime take the metformin you need to follow up with a primary care doctor as soon as possible return for nausea, vomiting, abdominal pain, fevers or any other concerns your goal for blood sugar at this time should be under 300 please eat well and decrease your carbohydrates. Prescriptions: New metformin 500 mg tablet 500 mg PO BID Qty: 60 2RF insulin glargine [Lantus U-100 Insulin] 100 unit/mL solution 10 unit subcut QPM Qty: 10 2RF (DME) blood-glucose meter [FreeStyle Wharton] Kit See Rx Instructions .Route Qty: 1 0RF Rx Instructions: As directed (DME) blood-glucose meter [Freestyle Insu[employer]x] Misc See Rx Instructions .Route Qty: 1 0RF Rx Instructions: As directed (DME) lancets [FreeStyle Lancets] 28 gauge misc See Rx Instructions .Route Qty: 100 2RF Rx Instructions: As directed check blood sugar three times a day with meals and hour of sleep (DME) FreeStyle Test Strip See Rx Instructions .Route Qty: 100 2RF Rx Instructions: As directed check blood sugar three times a day with meals and hour of sleep No Action lorazepam [Ativan] 1 mg tablet 1 mg PO TID PRN (Reason: anxiety) Qty: 10 0RF Rx Instructions: This medication causes drowsiness, no driving for 6 hours after taking ibuprofen 600 mg tablet 600 mg PO Q6H PRN (Reason: pain) Qty: 20 0RF ondansetron HCl [Zofran] 4 mg tablet 4 mg PO Q6H PRN (Reason: nausea and vomiting) Qty: 7 0RF usesocofcs-bbtpzmotgsfbe-eceu [Fioricet] 50-300-40 mg capsule 1 cap PO Q4-6H PRN (Reason: pain) Qty: 14 0RF lidocaine [Salonpas (lidocaine)] 4 % adhesive patch,medicated 1 patch topical BID PRN (Reason: pain) Qty: 10 0RF tizanidine [Zanaflex] 2 mg capsule 2 mg PO BID PRN (Reason: muscle spasticity) Qty: 6 0RF naproxen sodium 220 mg capsule 220 mg PO Q8H PRN (Reason: pain) Qty: 14 0RF Interventions: ED Discharge Assessment Last Done: 02/19/25 17:14 Discharge Date/Time: 02/19/25 18:04 Print Language: German
[2025-02-19 14:55] LABS: Glucose, Whole Blood 479 mg/dL (60-115)
[2025-02-19] MEDS: 0.9 % Sodium Chloride 1,000 ML 999 ML IV ×2 (15:34)
[2025-02-19 15:39] LABS: Appearance Urine Clear; Color Urine Yellow; Glucose Urine UA >=1000 mg/dL (Negative); Leukocyte Esterase Urine Negative (Negative); Nitrite Urine Negative (Negative); PH 5.5 (5.0-9.0); Specific Gravity - Urine >= 1.030 (1.005-1.025); UMIC TRIGGER UACC YES; Urine Blood Moderate (2+) (Negative); Urine Ketones 15 mg/dL (Negative); Urine Protein Negative (Neg-Trace)
[2025-02-19 15:47] LABS: Bacteria Urine None Seen (None Seen); RBC Urine >20 /HPF (0-2); Squamous Epithelial Cell Urine 0-2 /HPF (0-2); WBC Urine 0-5 /HPF (0-5)
[2025-02-19 15:57] LABS: Basophils Absolute Auto 0.1 X10*3/uL (0.0-0.2); Basophils Percent Auto 0.6 % (0-2); Eosinophils Absolute Auto 0.1 X10*3/uL (0.0-0.4); Eosinophils Percent Auto 0.9 % (0-4); Hematocrit 40.8 % (37.0-47.0); Hemoglobin 14.1 g/dl (12.0-16.0); Imm Gran Abs Auto 0.03 X10*3/uL (0.00-0.03); Imm Gran Pct Auto 0.3 % (0.0-0.4); Lymphocytes Absolute Auto 4.7 X10*3/uL (1.2-4.9); Lymphocytes Percent Auto 40.7 % (20-40); MANUAL DIFF FLAG SCAN; Mean Corpuscular HGB Conc 34.6 g/dl (31.0-35.0); Mean Corpuscular Hemoglobin 29.4 pg (27.0-33.0); Mean Corpuscular Volume 85.2 fL (80.0-98.0); Mean Platelet Volume 11.6 fL (9.4-12.3); Monocytes Absolute Auto 0.6 X10*3/uL (0.1-1.2); Monocytes Percent Auto 5.6 % (2-11); Neutrophils Percent Auto 51.9 % (45-73); Platelet Count 242 X10*3/uL (160-400); Red Blood Count 4.79 X10*6/uL (4.20-5.50); Red Cell Distribution Width 12.3 % (11.0-16.0); SCAN SMEAR FLAG 1; White Blood Count 11.5 X10*3/uL (4.8-10.8)
[2025-02-19 16:01] LABS: Estimated Average Glucose 324 mg/dL; Hemoglobin A1C 425.6399 umol/L; Hemoglobin A1c % 12.9 % (<6.0); Total Hemoglobin (HGBA1C) 3638.6008 umol/L
[2025-02-19 16:10] LABS: Alanine Aminotransferase 28 U/L (0-31); Anion Gap 16 (12-20); Aspartate Amino Transferase 36 U/L (5-31); Beta-Hydroxybutyrate 1.21 mmol/L (0.02-0.27); Bilirubin Total 0.3 mg/dL (0.0-1.0); Blood Urea Nitrogen 14 mg/dL (9-16); Calcium 9.3 mg/dL (8.4-10.2); Carbon Dioxide 21 mmol/L (22-29); Chloride 99 mmol/L (96-108); Creatinine Clr Calc Pharmacy 68.3; Estimated Glomerular Filt Rate > 60; Glucose Random 465 mg/dL (60-115); Potassium 4.4 mmol/L (3.3-5.1); Sodium 132 mmol/L (135-145); Total Protein 8.3 g/dL (6.5-8.0)
[2025-02-19] MEDS: Insulin Regular, Human 100 UNIT/ML 10 ML VIAL IVPUSH (16:18)
[2025-02-19 16:23] LABS: Glucose, Whole Blood 379 mg/dL (60-115)
[2025-02-19 17:00] LABS: Alkaline Phosphatase 152 U/L (39-117)
[2025-02-19 17:08] LABS: Glucose, Whole Blood 298 mg/dL (60-115)
[2025-02-19 17:13] VITALS: BP 126/86; PULSE 105; RESP 18; TEMP 36.6; O2SAT 97
[2025-02-19 17:14] VITALS: BP 126/86; PULSE 105; RESP 18; TEMP 36.6; O2SAT 97
[2025-02-19 17:40] LABS: SLIDE REVIEW VERIFIED
[2025-02-19 17:50] LABS: Anion Gap 12 (12-20); Blood Urea Nitrogen 11 mg/dL (9-16); Carbon Dioxide 22 mmol/L (22-29); Chloride 109 mmol/L (96-108); Creatinine Clr Calc Pharmacy 93.3; Estimated Glomerular Filt Rate > 60; Glucose Random 314 mg/dL (60-115); Potassium 3.7 mmol/L (3.3-5.1); Sodium 139 mmol/L (135-145)
[2025-02-19] MEDS: Insulin Glargine,Hum.rec.anlog 100 UNIT/ML 10 ML VIAL 10 UNIT SUBCUT (17:54)
[2025-02-19 17:57] LABS: Calcium 8.4 mg/dL (8.4-10.2)
--- OUTSIDE RECORDS SUMMARY | 2025-02-19 18:12 | XMS_ITS | Clinical Summary ---
Author Organization [facility] Address [address] [place] [address] Care Team Providers Care Rock Cutter Name Role Phone Renetta Moreno MD Primary Care Provider [phone]- [phone] Allergies Active Allergy Reactions Criticality Noted Date Comments Other Anxiety 01/18/2022 Medications prednisoLONE acetate (PRED FORTE) 1% ophthalmic suspension Instill 1 drop into the left eye 4 times a day. Active acetaminophen (TYLENOL) 500 mg tablet Take 500 mg by mouth every 4 hours as needed for pain. Active levonorgestreL (MIRENA) 20 mcg/24 hours (6 yrs) 52 mg 5 year intrauterine device as directed Active predniSONE (DELTASONE) 10 mg tablet Every morning by mouth: take 40 mg daily x1 week, then 30 mg daily x1 week, then 20 mg daily x1 week, then 10 mg daily x1 week, then stop. 72 tablet 1 1 Active Additional Information Patient not taking.Reported on 09/29/2022 acetaminophen/di phenhydramine (TYLENOL PM EXTRA STRENGTH ORAL) Take by mouth. Activ e methotrexate (TREXALL) 2.5 mg tablet Take 6 tablets (15 mg total) by mouth once a week. 24 tablet 4 4 Active folic acid (FOLVITE) 1 mg tablet Take 1 tablet (1 mg total) by mouth once a day. 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 Encounters Date Type Department Care Team Description 01/07/2025 Telephone [facility] [address] [address] Telephone Intake, Staff PAC Clinical Questions 11/30/[address] [address] Génessi Watters MD 11/27/2024 myChart Message [address] [address] Allie Busby, RN Work letter from Last 3 Months Family History Medical History Relation Name Comments Uveitis Brother Diabetes Mother Relation Name Status Comments Brother Father Mother Alive Social History Tobacco Use Types Packs/Day Years Used Date Smoking Tobacco: Every Day Smokeless Tobacco: Never Comments Unknown Sex and Gender Information Value Date Recorded Sex Assigned at Female 08/03/2023 6:58 PM EDT Legal Sex Female 12:59 PM EDT Gender Identity Female 08/03/2023 6:58 PM EDT Sexual Orientation Straight 08/03/2023 6: 58 PM EDT Occupation Industry Job Start Date Job End Date social security Not on file Not on file Not on file Plan of Treatment Upcoming Encounters Date Type Department Care Team (Late st Contact Info) Description 03/15/2025 10:45 AM EDT Follow-Up [facility] at [address] [address] Pratik Suazo MD [address] [place] [phone] Health Maintenance Due Date Last Done Comments Cervical Cancer Screening 1969 Cologuard 1969 Colon Cancer Screening 1969 Colonoscopy 1969 FOBT / Fit Test 1969 HIV Screening 1969 HPV and Pap Smear 1969 Pap Smear 1969 Sigmoidoscopy 1969 Hepatitis B Vaccines (1 of 3 - 19+ 3-dose series) 1988 Mammogram 2009 Pneumococcal Vaccine: 50+ Ye ars (2 of 2 - PCV) 09/21/2013 09/21/2012, 08/26/2011 CT Lung Cancer Screening (Baseline) 2019 Zoster Vaccines (1 of 2) 2019 DTaP,Tdap,and Td Vaccines (2 - Td or Tdap) 12/02/2021 12/02/2011 COVID-19 Vaccine (3 - 2023-2 5 season) 2024 12/01/2021, 11/03/2021 Alcohol/Substance Use Screening 11/07/2024 Depression Screening and Follow-Up 11/07/2024 Social Drivers of Health Sue ual Screening 11/07/2024 Influenza Vaccine (Season Ended) 2025 11/03/2021, 08/03/2018, 08/21/2017, Additional history exists RSV Vaccine (60+ years old a nd patients) (1 - 1-dose 75+ series) 2044 Hepatitis C Screening Completed 07/02/2021 Procedures * Due to [place] [employer] law, this organization might not be sharing negative HIV tests. Procedure Name Priority Date/Time Associated Diagnosis Comments HEPATITIS C ANTIBODY W/REFLEX TO HCV RNA, QUANTITATIVE PCR Routine 07/02/2021 3:06 PM EDT High risk medication use from Last 3 Months or Most Recently Relevant to Health Maintenance Results * Due to [place] law, this organization might not be sharing negative HIV tests. * Hepatitis C Antibody w/Reflex to HCV RNA, Quantitative PCR (07/02/2021 3:06 PM EDT) Hepatitis C Antibody NON-REACT JAJA NON-REACT JAJA 07/03/2021 4:55 AM EDT [employer] Signal To Cut-Off 0.01 <1.00 07/03/2021 4:55 AM EDT [employer] Comment: HCV antibody was non-reactive. There is no laboratory evidence of HCV infection. In most cases, no further action is required. However, if recent HCV exposure is suspected, a test for HCV RNA (test code 13362) is suggested. For additional information please refer to http://education.immatics biotechnologies/faq/HDC86o0 (This link is being provided for informational/ educational purposes only.) Blood Structure of peripheral vein / Unknown Venipuncture / Unknown 07/02/2021 3:06 PM EDT 07/02/2021 3:06 PM EDT Narrative [facility] - 07/03/2021 4:55 AM EDT [facility] Received Date: us Kinjal Short MD LAB BLOOD ORDERABLES Final Re sult [facility] [address] [facility] 3rd Floor, [place] [address], [place] [phone] [facility] [address] [facility] 3rd Floor, [place] [address], [place] [phone] from Last 3 Months or Most Recently Relevant to Health Maintenance Insurance [employer]BS FEDERAL Care Teams Rock Cutter Relationship Specialty Start Date End Date [facility] [place] [address] PCP - General 03/26/21
--- OUTSIDE RECORDS SUMMARY | 2025-02-19 18:12 | XMS_ITS | Referral Summary ---
Author Organization [facility] Address [address] [place] [address] Care Team Providers Care Pediatric Acute Care Unit Nurse Name Role Phone Renetta Moreno MD Primary Care Provider [phone]- [phone] Encounters Date Type Department Care Team Description 01/07/[address] [phone] Telephone Intake, Staff PAC Clinical Questions 11/30/[address] [phone] Génesis Watters MD 11/27/2024 Cherrishhart Message [address] [id number] Allie Busby, RN Work letter from Last 3 Months Allergies Active Allergy Reactions Criticality Noted Date [...] x1 week, then stop. 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 Procedure Name Priority Date/Time Associated Diagnosis Comments HEPATITIS C ANTIBODY W/REFLEX TO HCV RNA, QUANTITATIVE PCR Routine 07/02/2021 3:06 PM EDT High risk medication use from Last 3 Months or Most Recently Relevant to Health Maintenance Results * Due to [place] [employer] law, this organization might not be sharing negative HIV tests. * Hepatitis C Antibody w/Reflex to HCV RNA, Quantitative PCR (07/02/2021 3:06 PM EDT) Hepatitis C Antibody NON-REACT JAJA NON-REACT JAJA 07/03/2021 4:55 AM EDT [employer] Signal To Cut-Off 0.01 <1.00 07/03/2021 4:55 AM EDT [employer] Comment: HCV antibody was non-reactive. There is no laboratory evidence of HCV infection. In most cases, no further action is required. However, if recent HCV exposure is suspected, a test for HCV RNA (test code 36561) is suggested. For additional information please refer to http://education.[employer]/faq/OBA08u7 (This link is being provided for informational/ educational purposes only.) Blood Structure of peripheral vein / Unknown Venipuncture / Unknown 07/02/2021 3:06 PM EDT 07/02/2021 3:06 PM EDT Narrative [facility] - 07/03/2021 4:55 AM EDT [facility] Received Date: Kinjal Short MD LAB BLOOD ORDERABLES Final Re sult [facility] [address] [facility] [address] [facility], [place] [address], [employer] [facility] [address], [place] [address], from Last 3 Months or Most Recently Relevant to Health Maintenance [place] [address] [place] [address] FEDERAL Care Teams Pediatric Acute Care Unit Nurse Relationship Specialty Start Date End Date Renetta Moreno MD [address] [place] [address] PCP - General 03/26/21
== END 2025-02-19 18:04 | disposition home or self-care (01) ==
PROVIDERS: Physician Assistant; Emergency Provider Emergency Medicine
DX: E11.65 Type 2 diabetes mellitus with hyperglycemia (principal)
CPT/HCPCS: 36415; 80048; 80053; 81001; 82010; 82947; 83036; 85025; 96361; 96374; 99284

== ENCOUNTER 2025-02-25 17:05 | Emergency (ER) | payer BC, SELFPAY ==
--- NOTE | 2025-02-25 17:17 | ED.GENADULT ---
HPI - General Adult General Chief complaint: General Medical Stated complaint: high blood sugar 414 Time Seen by Provider: 02/25/25 20:10 Related Data Previous Rx's ?Medication ?Instructions ?Recorded ibuprofen 600 mg tablet 600 mg PO Q6H PRN pain #20 tabs 03/03/21 lorazepam 1 mg tablet (Ativan) 1 mg PO TID PRN anxiety #10 tabs 03/03/21 ondansetron HCl 4 mg tablet 4 mg PO Q6H PRN nausea and 03/03/21 (Zofran) vomiting #7 tabs egoyjyixnl-axvbzmjoklogp-kdrrsfyr 1 cap PO Q4-6H PRN pain #14 caps 03/08/21 50 mg-300 mg-40 mg capsule (Fioricet) lidocaine 4 % topical patch 1 patch topical BID PRN pain #10 ea 06/18/21 (Salonpas (lidocaine)) naproxen sodium 220 mg capsule 220 mg PO Q8H PRN pain #14 caps 06/18/21 tizanidine 2 mg capsule (Zanaflex) 2 mg PO BID PRN muscle spasticity 06/18/21 #6 caps blood sugar diagnostic (FreeStyle #100 ea 02/19/25 Test strips) blood-glucose meter (FreeStyle #1 ea 02/19/25 [place] kit) blood-glucose meter (Freestyle #1 ea 02/19/25 [employer] meter) insulin glargine 100 unit/mL 10 unit (0.1 mL) subcut QPM #10 mL 02/19/25 subcutaneous solution (Lantus U-100 Insulin) lancets 28 gauge (FreeStyle #100 ea 02/19/25 Lancets) metformin 500 mg tablet 500 mg PO BID #60 tabs 02/19/25 Allergies Allergy/AdvReac Type Severity Reaction Status Date / Time No Known Allergies Allergy Verified 02/25/25 17:19 COUNT INCLUDES THE [facility] Past Medical History Medical History Migraines Surgical History H/O tubal ligation H/O rotator cuff surgery History of ankle surgery Social History Social History Alcohol intake: current Alcohol intake frequency: holidays/special occasions only Patient Tobacco Use Status: Current someday Tobacco user Smoked in Last 30 Days: Yes Use of substances other than those prescribed or required for medical reasons: Yes Substance Use Type: Marijuana Substance Use Frequency: Occasionally Advance Directives: No Advance Directives Information Provided: Yes Patient : No Physical Exam ED Vital Signs: Vital Signs - 24 hr 02/25/25 17:18 02/25/25 20:07 Temperature 98.0 F 98.4 F Pulse Rate 99 98 Respiratory Rate 18 18 Blood Pressure 146/88 H 142/75 H Pulse Oximetry 98 99 Oxygen Delivery Method Room Air Room Air BMI result Body Mass Index 41.5 Course Course Course Narrative: This is a rapid medical exam performed by Ronna Salgado NP: Additional HPI, ROS, PE not included below will be deferred to primary provider. Patient is a 54-year-old female with pmhx of newly diagnosed DM (02/19/25) presenting with complaint of elevated blood glucose levels. Seen here on 02/19, on 02/21 developed cough/viral sxs. Starting to feel better from those sxs now but glucose levels have been over 400. Plan: labs Medical Decision Making Lab Data 02/25/25 18:34 02/25/25 18:34 Labs: Lab Results 02/25/25 02/25/25 02/25/25 Range/Units 18:34 18:42 19:59 WBC 8.4 (4.8-10.8) X10*3/uL RBC 4.54 (4.20-5.50) X10*6/uL Hgb 13.3 (12.0-16.0) g/dl Hct 40.0 (37.0-47.0) % MCV 88.1 (80.0-98.0) fL MCH 29.3 (27.0-33.0) pg MCHC 33.3 (31.0-35.0) g/dl RDW 12.4 (11.0-16.0) % Plt Count 251 (160-400) X10*3/uL MPV 11.2 (9.4-12.3) fL Immature Gran % (Auto) Cancelled Neut % (Auto) Cancelled Lymph % (Auto) Cancelled [place] % (Auto) Cancelled Eos % (Auto) Cancelled Baso % (Auto) Cancelled Lymph # (Auto) Cancelled [place] # (Auto) Cancelled Eos # (Auto) Cancelled Baso # (Auto) Cancelled Abs Immat Gran (auto) Cancelled Absolute Neuts (auto) Cancelled Absolute Nucleated RBC 0.000 (0.0-0.012) X10*3/uL Nucleated RBC % (auto) 0.0 (0.0-0.2) /100WBC Neutrophils % (Manual) 40 L (45-73) % Band Neutrophils % 0 L (3-5) % Lymphocytes % (Manual) 47 H (20-40) % Atypical Lymphs % (Man) 7 H (0-6) % Monocytes % (Manual) 5 (2-11) % Basophils % (Manual) 1 (0-2) % Abs Neuts (Manual) 3.4 (2.0-8.3) X10*3/uL Lymphocytes # (Manual) 3.9 (1.2-4.9) X10*3/uL Atyp Lymphs # (Manual) 0.6 x10*3/uL Monocytes # (Manual) 0.4 (0.1-1.2) X10*3/uL Basophils # (Manual) 0.1 (0.0-0.2) X10*3/uL Platelet Estimate NORMAL (NORMAL) Plt Morphology Comment NORMAL RBC Morphology NORMAL Smear Tech's Comments MANUAL DIFF VBG pH 7.46 H (7.32-7.43) VBG pCO2 33 mmHg VBG pO2 78 mmHg VBG HCO3 24 (22-26) mmol/L VBG O2 Saturation 97.0 % VBG Base Excess 1.2 mmol/L Sodium 136 (135-145) mmol/L Potassium 3.5 (3.3-5.1) mmol/L Chloride 103 (96-108) mmol/L Carbon Dioxide 22 (22-29) mmol/L Anion Gap 15 (12-20) BUN 10 (9-16) mg/dL Creatinine 0.68 (0.5-1.4) mg/dL Estim Creat Clear Calc 93.2 Estimated GFR > 60 POC Glucose 207 H (60-115) mg/dL Random Glucose 258 H (60-115) mg/dL Calcium 9.3 D (8.4-10.2) mg/dL Magnesium 1.8 (1.6-2.6) mg/dL Total Bilirubin 0.3 (0.0-1.0) mg/dL AST 25 (5-31) U/L ALT 29 (0-31) U/L Alkaline Phosphatase 122 H (39-117) U/L Total Protein 7.6 (6.5-8.0) g/dL Albumin 3.9 (3.5-5.0) g/dL Beta-Hydroxybutyrate 0.25 (0.02-0.27) mmol/L Urine Color Yellow Urine Appearance Clear Urine pH 5.5 (5.0-9.0) Ur Specific [place] >= 1.030 H (1.005-1.025) Urine Protein 30 (1+) H (Neg-Trace) mg/dL Urine Glucose (UA) >=1000 H (Negative) mg/dL Urine Ketones 15 (Negative) mg/dL Urine Blood Negative (Negative) Urine Nitrite Negative (Negative) Ur Leukocyte Esterase Negative (Negative) Urine RBC 3-5 H (0-2) /HPF Urine WBC 0-5 (0-5) /HPF Ur Squamous Epith Cells 3-5 (0-2) /HPF Calcium Oxalate Crystal Present Urine Bacteria None Seen (None Seen) Hyaline Casts 0-2 (0-2) /LPF Influenza Type A (PCR) NEGATIVE (Negative) Influenza Type B (PCR) NEGATIVE (Negative) RSV RNA Qual (PCR) NEGATIVE (Negative) SARS-CoV-2 RNA (RT-PCR) NEGATIVE (Negative) Discharge Plan Discharge Clinical Impression: Acute hyperglycemia Patient Disposition: Elopement Instructions: Diabetic Hyperglycemia (ED) Prescriptions: No Action lorazepam [Ativan] 1 mg tablet 1 mg PO TID PRN (Reason: anxiety) Qty: 10 0RF Rx Instructions: This medication causes drowsiness, no driving for 6 hours after taking ibuprofen 600 mg tablet 600 mg PO Q6H PRN (Reason: pain) Qty: 20 0RF ondansetron HCl [Zofran] 4 mg tablet 4 mg PO Q6H PRN (Reason: nausea and vomiting) Qty: 7 0RF uzcwugblvp-lifvzjwjbxudu-toyy [Fioricet] 50-300-40 mg capsule 1 cap PO Q4-6H PRN (Reason: pain) Qty: 14 0RF lidocaine [Salonpas (lidocaine)] 4 % adhesive patch,medicated 1 patch topical BID PRN (Reason: pain) Qty: 10 0RF tizanidine [Zanaflex] 2 mg capsule 2 mg PO BID PRN (Reason: muscle spasticity) Qty: 6 0RF naproxen sodium 220 mg capsule 220 mg PO Q8H PRN (Reason: pain) Qty: 14 0RF metformin 500 mg tablet 500 mg PO BID Qty: 60 2RF insulin glargine [Lantus U-100 Insulin] 100 unit/mL solution 10 unit subcut QPM Qty: 10 2RF (DME) blood-glucose meter [FreeStyle [place]] Kit See Rx Instructions .Route Qty: 1 0RF Rx Instructions: As directed (DME) blood-glucose meter [Freestyle [employer]] Misc See Rx Instructions .Route Qty: 1 0RF Rx Instructions: As directed (DME) lancets [FreeStyle Lancets] 28 gauge misc See Rx Instructions .Route Qty: 100 2RF Rx Instructions: As directed check blood sugar three times a day with meals and hour of sleep (DME) FreeStyle Test Strip See Rx Instructions .Route Qty: 100 2RF Rx Instructions: As directed check blood sugar three times a day with meals and hour of sleep Print Language: Martiniquais
[2025-02-25 17:18] VITALS: BP 146/88; PULSE 99; RESP 18; TEMP 36.7; O2SAT 98; BMI 41.5
[2025-02-25 18:44] LABS: Hemoglobin 13.3 g/dl (12.0-16.0); Mean Corpuscular HGB Conc 33.3 g/dl (31.0-35.0); Mean Corpuscular Hemoglobin 29.3 pg (27.0-33.0); Mean Corpuscular Volume 88.1 fL (80.0-98.0); Mean Platelet Volume 11.2 fL (9.4-12.3); Platelet Count 251 X10*3/uL (160-400); Red Blood Count 4.54 X10*6/uL (4.20-5.50); Red Cell Distribution Width 12.4 % (11.0-16.0); White Blood Count 8.4 X10*3/uL (4.8-10.8)
[2025-02-25 18:45] LABS: Venous Blood Gas Refer to POC result
[2025-02-25 18:45] LABS: VBG Base Excess 1.2 mmol/L; VBG HCO3 24 mmol/L (22-26); VBG pCO2 33 mmHg; VBG pH 7.46 (7.32-7.43); VBG pO2 78 mmHg
[2025-02-25 18:47] LABS: Appearance Urine Clear; Color Urine Yellow; Glucose Urine UA >=1000 mg/dL (Negative); Leukocyte Esterase Urine Negative (Negative); Nitrite Urine Negative (Negative); PH 5.5 (5.0-9.0); Specific Gravity - Urine >= 1.030 (1.005-1.025); UMIC TRIGGER UACC YES; Urine Blood Negative (Negative); Urine Ketones 15 mg/dL (Negative); Urine Protein 30 (1+) mg/dL (Neg-Trace)
[2025-02-25 19:01] LABS: Bacteria Urine None Seen (None Seen); Calcium Oxalate Crystals Urine Present; Hyaline Casts Urine 0-2 /LPF (0-2); WBC Urine 0-5 /HPF (0-5)
[2025-02-25 19:19] LABS: SLIDE REVIEW MANUAL DIFF
[2025-02-25 19:24] LABS: Alanine Aminotransferase 29 U/L (0-31); Albumin Level 3.9 g/dL (3.5-5.0); Alkaline Phosphatase 122 U/L (39-117); Anion Gap 15 (12-20); Aspartate Amino Transferase 25 U/L (5-31); Atypical Lymph Absolute Manual 0.6 x10*3/uL; Atypical Lymphs Percent Manual 7 % (0-6); Basophils Abs Manual 0.1 X10*3/uL (0.0-0.2); Basophils Percent Manual 1 % (0-2); Beta-Hydroxybutyrate 0.25 mmol/L (0.02-0.27); Bilirubin Total 0.3 mg/dL (0.0-1.0); Blood Urea Nitrogen 10 mg/dL (9-16); Calcium 9.3 mg/dL (8.4-10.2); Carbon Dioxide 22 mmol/L (22-29); Chloride 103 mmol/L (96-108); Creatinine Clr Calc Pharmacy 93.2; Estimated Glomerular Filt Rate > 60; Glucose Random 258 mg/dL (60-115); Lymphocytes Absolute Manual 3.9 X10*3/uL (1.2-4.9); Lymphocytes Percent Manual 47 % (20-40); Magnesium 1.8 mg/dL (1.6-2.6); Monocytes Absolute Manual 0.4 X10*3/uL (0.1-1.2); Monocytes Percent Manual 5 % (2-11); Neutrophils Percent Manual 40 % (45-73); Potassium 3.5 mmol/L (3.3-5.1); Sodium 136 mmol/L (135-145); Total Protein 7.6 g/dL (6.5-8.0)
[2025-02-25 19:27] LABS: RBC Morphology NORMAL
[2025-02-25 19:28] LABS: Band Neutrophils Percent 0 % (3-5); Neutrophils Absolute Manual 3.4 X10*3/uL (2.0-8.3); Platelet Estimate NORMAL (NORMAL); Platelet Morphology Comment NORMAL
[2025-02-25 19:35] LABS: Influenza A PCR NEGATIVE (Negative); Influenza B PCR NEGATIVE (Negative); Resp Syncy Virus RNA Qual PCR NEGATIVE (Negative); SARS COV2 PCR INHOUSE NEGATIVE (Negative)
--- OUTSIDE RECORDS SUMMARY | 2025-02-25 19:42 | XMS_ITS | Referral Summary ---
Author Organization [facility] Address [address] [place] [address] Care Team Providers Care [employer] Name Role Phone Renetta Moreno MD Primary Care Provider [phone] Encounters Date Type Department Care Team Description 01/07/[address] [phone] Telephone Intake, Staff PAC Clinical Questions 11/30/[address] [phone] Génesis Watters MD 11/27/2024 [employer] Message [address] [phone] Allie Busby, RN Work letter from Last [...] Info) Description 03/15/2025 10:45 AM EDT Follow-Up [facility] at [address] [phone] Pratik Suazo MD [address] [place] [id number] Procedures * Due to [place] [employer] law, this organization might not be sharing negative HIV tests. Procedure Name Priority Date/Time Associated Diagnosis Comments HEPATITIS C ANTIBODY W/REFLEX TO HCV RNA, QUANTITATIVE PCR Routine 07/02/2021 3:06 PM EDT High risk medication use from Last 3 Months or Most Recently Relevant to Health Maintenance Results * Due to [place] [employer] law, this organization might not be sharing negative HIV tests. * Hepatitis C Antibody w/Reflex to HCV RNA, Quantitative PCR (07/02/2021 3:06 PM EDT) Hepatitis C Antibody NON-REACT JAJA NON-REACT JAJA 07/03/2021 4:55 AM EDT [facility] Signal To Cut-Off 0.01 <1.00 07/03/2021 4:55 AM EDT [facility] Comment: HCV antibody was non-reactive. There is no laboratory evidence of HCV infection. In most cases, no further action is required. However, if recent HCV exposure is suspected, a test for HCV RNA (test code 15249) is suggested. For additional information please refer to http://education.NanoTune/faq/FDJ73v6 (This link is being provided for informational/ educational purposes only.) Blood Structure of peripheral vein / Unknown Venipuncture / Unknown 07/02/2021 3:06 PM EDT 07/02/2021 3:06 PM EDT Narrative [facility] - 07/03/2021 4:55 AM EDT [facility] Received Date: Kinjal Short MD LAB BLOOD ORDERABLES Final Re sult [facility] [address] [facility] [address] [facility], [place] [address], [employer] [facility] [address], [place] [address], from Last 3 Months or Most Recently Relevant to Health Maintenance [place] [address] [place] [id number] [employer]AL Care Teams [employer] Technology Teacher Relationship Specialty Start Date End Date Renetta Moreno MD [address] [place] [address] PCP - General 03/26/21
[2025-02-25 20:03] LABS: Glucose, Whole Blood 207 mg/dL (60-115)
[2025-02-25 20:07] VITALS: BP 142/75; PULSE 98; RESP 18; TEMP 36.9; O2SAT 99
--- NOTE | 2025-02-25 21:44 | ED.GENADULT ---
HPI - General Adult General Chief complaint: General Medical Stated complaint: high blood sugar 414 Time Seen by Provider: 02/25/25 20:10 History of Present Illness HPI narrative: Patient is a 54-year-old female presented today with having a history of diabetes been having some upper respiratory symptoms all week. Patient was seen last week. Told to take metformin told her to take insulin patient been compliant with medications noted her sugar still 400 despite eating very small meals. Patient is from home. No fever no chills no diaphoresis. No abdominal pain. Related Data Previous Rx's ?Medication ?Instructions ?Recorded ibuprofen 600 mg tablet 600 mg PO Q6H PRN pain #20 tabs 03/03/21 lorazepam 1 mg tablet (Ativan) 1 mg PO TID PRN anxiety #10 tabs 03/03/21 ondansetron HCl 4 mg tablet 4 mg PO Q6H PRN nausea and 03/03/21 (Zofran) vomiting #7 tabs gzkbbhdwus-qzrsvyhkqzwxv-vatfodof 1 cap PO Q4-6H PRN pain #14 caps 03/08/21 50 mg-300 mg-40 mg capsule (Fioricet) lidocaine 4 % topical patch 1 patch topical BID PRN pain #10 ea 06/18/21 (Salonpas (lidocaine)) naproxen sodium 220 mg capsule 220 mg PO Q8H PRN pain #14 caps 06/18/21 tizanidine 2 mg capsule (Zanaflex) 2 mg PO BID PRN muscle spasticity 06/18/21 #6 caps blood sugar diagnostic (FreeStyle #100 ea 02/19/25 Test strips) blood-glucose meter (FreeStyle #1 ea 02/19/25 [place] kit) blood-glucose meter (Freestyle #1 ea 02/19/25 [employer] meter) insulin glargine 100 unit/mL 10 unit (0.1 mL) subcut QPM #10 mL 02/19/25 subcutaneous solution (Lantus U-100 Insulin) lancets 28 gauge (FreeStyle #100 ea 02/19/25 Lancets) metformin 500 mg tablet 500 mg PO BID #60 tabs 02/19/25 Allergies Allergy/AdvReac Type Severity Reaction Status Date / Time No Known Allergies Allergy Verified 02/25/25 17:19 Review of Systems Review of Systems: No fever no chills no diaphoresis PMFSH Past Medical History Attestation statement: The following information was validated with the patient. Medical History Migraines Surgical History H/O tubal ligation H/O rotator cuff surgery History of ankle surgery Social History Social History Alcohol intake: current Alcohol intake frequency: holidays/special occasions only Patient Tobacco Use Status: Current someday Tobacco user Smoked in Last 30 Days: Yes Use of substances other than those prescribed or required for medical reasons: Yes Substance Use Type: Marijuana Substance Use Frequency: Occasionally Advance Directives: No Advance Directives Information Provided: Yes Patient : No Physical Exam ED Vital Signs: Vital Signs - 24 hr 02/25/25 17:18 02/25/25 20:07 Temperature 98.0 F 98.4 F Pulse Rate 99 98 Respiratory Rate 18 18 Blood Pressure 146/88 H 142/75 H Pulse Oximetry 98 99 Oxygen Delivery Method Room Air Room Air BMI result Body Mass Index 41.5 Appearance: Alert. Oriented X3. No acute distress. Eyes: Pupils equal, round and reactive to light. ENT: Pharynx normal. Neck: Normal inspection. Neck supple. No lymph nodes noted. No crepitus CVS: Normal heart rate and rhythm. Pulses normal. Normal S1 and S2 Respiratory: No respiratory distress. Breath sounds normal. No Wheezing. No rales Abdomen: Soft and nontender. No rigidity. No distention. good BS x4 Skin: Skin warm and dry. Normal skin color. Normal skin turgor. Extremities: No lower extremity edema. Neurovascular intact to all extremities. No Lacerations. No Rash Neuro: Oriented X 3. No motor deficit. No sensory deficit. Moving all extermities. No slurred speech Medical Decision Making Medical Decision Making MDM Narrative: Patient's sugar initially is 400 on my arrival at bedside it was 200. COVID flu RSV were all negative urine showed no signs of infection still likely has a viral syndrome patient's electrolytes showed no evidence of DKA has a normal anion gap has a normal bicarb has a sugar of 200 patient's white count is normal no acute distress. Explained to patient she could use an additional 5 units of long-acting insulin on a nightly basis. Close follow-up on an outpatient basis. When she is sick having viral syndrome she can have an elevated sugar. She got very upset started leaving walking out from the ED patient stated she can not get a good follow-up explained to patient the need for contacting [facility] contacting a primary care she get in touch with patient states understanding but was very upset as she can not get a good appointment. Differential Diagnosis Differential Diagnoses: The differential diagnosis associated with the presentation includes Hyperglycemia, DKA, infection Admission/Observation Consideration of admission/observation: Escalation of care including admission/observation considered Lab Data MDM Lab Attestation statement: I reviewed the patient's lab results. 02/25/25 18:34 02/25/25 18:34 Labs: Lab Results 02/25/25 02/25/25 02/25/25 Range/Units 18:34 18:42 19:59 WBC 8.4 (4.8-10.8) X10*3/uL RBC 4.54 (4.20-5.50) X10*6/uL Hgb 13.3 (12.0-16.0) g/dl Hct 40.0 (37.0-47.0) % MCV 88.1 (80.0-98.0) fL MCH 29.3 (27.0-33.0) pg MCHC 33.3 (31.0-35.0) g/dl RDW 12.4 (11.0-16.0) % Plt Count 251 (160-400) X10*3/uL MPV 11.2 (9.4-12.3) fL Immature Gran % (Auto) Cancelled Neut % (Auto) Cancelled Lymph % (Auto) Cancelled [place] % (Auto) Cancelled Eos % (Auto) Cancelled Baso % (Auto) Cancelled Lymph # (Auto) Cancelled [place] # (Auto) Cancelled Eos # (Auto) Cancelled Baso # (Auto) Cancelled Abs Immat Gran (auto) Cancelled Absolute Neuts (auto) Cancelled Absolute Nucleated RBC 0.000 (0.0-0.012) X10*3/uL Nucleated RBC % (auto) 0.0 (0.0-0.2) /100WBC Neutrophils % (Manual) 40 L (45-73) % Band Neutrophils % 0 L (3-5) % Lymphocytes % (Manual) 47 H (20-40) % Atypical Lymphs % (Man) 7 H (0-6) % Monocytes % (Manual) 5 (2-11) % Basophils % (Manual) 1 (0-2) % Abs Neuts (Manual) 3.4 (2.0-8.3) X10*3/uL Lymphocytes # (Manual) 3.9 (1.2-4.9) X10*3/uL Atyp Lymphs # (Manual) 0.6 x10*3/uL Monocytes # (Manual) 0.4 (0.1-1.2) X10*3/uL Basophils # (Manual) 0.1 (0.0-0.2) X10*3/uL Platelet Estimate NORMAL (NORMAL) Plt Morphology Comment NORMAL RBC Morphology NORMAL Smear Tech's Comments MANUAL DIFF VBG pH 7.46 H (7.32-7.43) VBG pCO2 33 mmHg VBG pO2 78 mmHg VBG HCO3 24 (22-26) mmol/L VBG O2 Saturation 97.0 % VBG Base Excess 1.2 mmol/L Sodium 136 (135-145) mmol/L Potassium 3.5 (3.3-5.1) mmol/L Chloride 103 (96-108) mmol/L Carbon Dioxide 22 (22-29) mmol/L Anion Gap 15 (12-20) BUN 10 (9-16) mg/dL Creatinine 0.68 (0.5-1.4) mg/dL Estim Creat Clear Calc 93.2 Estimated GFR > 60 POC Glucose 207 H (60-115) mg/dL Random Glucose 258 H (60-115) mg/dL Calcium 9.3 D (8.4-10.2) mg/dL Magnesium 1.8 (1.6-2.6) mg/dL Total Bilirubin 0.3 (0.0-1.0) mg/dL AST 25 (5-31) U/L ALT 29 (0-31) U/L Alkaline Phosphatase 122 H (39-117) U/L Total Protein 7.6 (6.5-8.0) g/dL Albumin 3.9 (3.5-5.0) g/dL Beta-Hydroxybutyrate 0.25 (0.02-0.27) mmol/L Urine Color Yellow Urine Appearance Clear Urine pH 5.5 (5.0-9.0) Ur Specific [place] >= 1.030 H (1.005-1.025) Urine Protein 30 (1+) H (Neg-Trace) mg/dL Urine Glucose (UA) >=1000 H (Negative) mg/dL Urine Ketones 15 (Negative) mg/dL Urine Blood Negative (Negative) Urine Nitrite Negative (Negative) Ur Leukocyte Esterase Negative (Negative) Urine RBC 3-5 H (0-2) /HPF Urine WBC 0-5 (0-5) /HPF Ur Squamous Epith Cells 3-5 (0-2) /HPF Calcium Oxalate Crystal Present Urine Bacteria None Seen (None Seen) Hyaline Casts 0-2 (0-2) /LPF Influenza Type A (PCR) NEGATIVE (Negative) Influenza Type B (PCR) NEGATIVE (Negative) RSV RNA Qual (PCR) NEGATIVE (Negative) SARS-CoV-2 RNA (RT-PCR) NEGATIVE (Negative) Chronic Conditions Patient?s care impacted by: Diabetes Social Determinants Patient?s care significantly limited by Social Determinants of Health including: Problems related to primary support group Discharge Plan Discharge Clinical Impression: Acute hyperglycemia Patient Disposition: Elopement Instructions: Diabetic Hyperglycemia (ED) Prescriptions: No Action lorazepam [Ativan] 1 mg tablet 1 mg PO TID PRN (Reason: anxiety) Qty: 10 0RF Rx Instructions: This medication causes drowsiness, no driving for 6 hours after taking ibuprofen 600 mg tablet 600 mg PO Q6H PRN (Reason: pain) Qty: 20 0RF ondansetron HCl [Zofran] 4 mg tablet 4 mg PO Q6H PRN (Reason: nausea and vomiting) Qty: 7 0RF fqarvqfybg-vyqstojdourzb-zdmy [Fioricet] 50-300-40 mg capsule 1 cap PO Q4-6H PRN (Reason: pain) Qty: 14 0RF lidocaine [Salonpas (lidocaine)] 4 % adhesive patch,medicated 1 patch topical BID PRN (Reason: pain) Qty: 10 0RF tizanidine [Zanaflex] 2 mg capsule 2 mg PO BID PRN (Reason: muscle spasticity) Qty: 6 0RF naproxen sodium 220 mg capsule 220 mg PO Q8H PRN (Reason: pain) Qty: 14 0RF metformin 500 mg tablet 500 mg PO BID Qty: 60 2RF insulin glargine [Lantus U-100 Insulin] 100 unit/mL solution 10 unit subcut QPM Qty: 10 2RF (DME) blood-glucose meter [FreeStyle [place]] Kit See Rx Instructions .Route Qty: 1 0RF Rx Instructions: As directed (DME) blood-glucose meter [Freestyle [employer]] Misc See Rx Instructions .Route Qty: 1 0RF Rx Instructions: As directed (DME) lancets [FreeStyle Lancets] 28 gauge misc See Rx Instructions .Route Qty: 100 2RF Rx Instructions: As directed check blood sugar three times a day with meals and hour of sleep (DME) FreeStyle Test Strip See Rx Instructions .Route Qty: 100 2RF Rx Instructions: As directed check blood sugar three times a day with meals and hour of sleep Print Language: Uzbek
--- NOTE | 2025-02-25 21:45 | PC.NURSE ---
Pt attempted to leave ED through ambulance entrance. Redirected to main exit, demanded to leave, walked past this RN out triage door. Patient walking w/ steady gait. auto claim representative Cora and primary RN Regi made aware.
--- NOTE | 2025-02-25 21:46 | PC.NURSE ---
patient noted to have eloped while being assessed by MD. provider ok w/ pt leaving/not completing tx at this time. pt left ED.
[2025-02-25 21:53] VITALS: BP 142/75; PULSE 98; RESP 18; TEMP 36.9; O2SAT 99
== END 2025-02-25 21:53 | disposition left against medical advice (07) ==
PROVIDERS: Registered Nurse Emergency; Emergency Provider Emergency Medicine Emergency Medical Services
DX: E11.65 Type 2 diabetes mellitus with hyperglycemia (principal); R05.9 Cough, unspecified; F17.210 Nicotine dependence, cigarettes, uncomplicated; Z03.818 Encounter for observation for suspected exposure to other biological agents ruled out; Z79.4 Long term (current) use of insulin; Z79.899 Other long term (current) drug therapy
CPT/HCPCS: 0241U; 80053; 81001; 82010; 82803; 82947; 83735; 85007; 85025; 85027; 99283; 99284